=== PATIENT | female | born 1945 | race Two or more races ===

== ENCOUNTER 2025-07-07 09:53 | Inpatient (IN) | payer MEDICARE, SELFPAY ==
--- NOTE | 2025-06-13 09:39 | CM ---
Demographics: confirmed
Living situation: lives independently with
Support Person Post Operatively: and daughter
History of
VN: history of [facility], not currently on service.
SNF: No
Outpatient: [facility] in [place], appointment made 07/10
Has patient purchased required equipment: yes, walker, encouraged hip kit
PCP: Nancy
Pharmacy: [facility]
Post Operative Discharge Plan: Home with family, outpatient PT
[2025-06-17 14:22] LABS: Hematocrit 42.4 % (37.0-47.0); Hemoglobin 13.9 g/dL (12.0-16.0); Mean Corp Hgb Conc. 32.8 g/dL (33.0-37.0); Mean Corpuscular Volume 89.5 fL (81.0-99.0); Platelet Count 231 10^3/uL (130-400); Red Cell Dist. Width 15.9 % (11.5-14.5)
[2025-06-17 15:26] LABS: ALT (SGPT) 19 U/L (0-35); AST (SGOT) 21 U/L (14-36); Albumin 4.3 g/dl (3.5-5.0); Alkaline Phosphatase 94 U/L (38-126); Blood Urea Nitrogen 14 mg/dl (7-17); Calcium 9.2 mg/dl (8.4-10.2); Carbon Dioxide 30 mmol/L (22-30); Chloride 99 mmol/L (98-107); Glucose 82 mg/dl (70-99); Potassium 4.5 mmol/L (3.5-5.1); Sodium 134 mmol/L (135-145); Total Protein 6.9 g/dl (6.3-8.2); eGFR > 60.00
[2025-06-18 08:10] LABS: Glycohemoglobin (HgbA1c) 5.4 % (4.0-5.9)
[2025-06-18 14:42] VITALS: BMI 25.4
[2025-06-18 14:43] VITALS: BMI 25.4
--- NOTE | 2025-07-01 09:26 | CM ---
Patient reached out to orthopedic office to see if she would qualify for acute rehab, plan is to to wait for PT/OT evaluations and then review patient needs at discharge, patient made her outpatient PT appointment at [facility] on
07/10.
Plan Await recommendations after surgery.
[2025-07-07] VITALS (21 sets, daily range): BP systolic 103–149; BP diastolic 48–108; BMI 25.4
[2025-07-07] MEDS: MOBIC 15 MG PO (10:52)
[2025-07-07] MEDS: TYLENOL 650 MG PO ×3 (10:52→20:19)
[2025-07-07] MEDS: NORMOSOL-R/PLASMALYTE-A 1000 IV ×2 (10:52→18:43)
--- NOTE | 2025-07-07 14:09 | W.PN.ORTHO ---
Today's Communication / Plan
-
d/c when stable
Assessment
.
Assessment:
Afib
HFpEF
PFO
-tele
-continue BB, Diltiazem and Propafenone uninterrupted
-resume Eliquis at modified dosing
-resume Jardiance
+ Midodrine w/ parameter to insure heart meds
-advise SCD given PFO
Ambulatory dysfunction.
Hx SDH s/p mechanical fall.
Vertigo.
-fall precautions
Iron deficiency anemia, on oral supplementation.
-Hgb stable pre-op
Plan
.
Surgery / Date: L SANTI Shipley 07/07/25
DVT Prophylaxis: Other (Eliquis 2.5mg bid + SCD)
Activity:
Out of bed.
PT/OT
Discharge Plan: Home w/ Outpatient PT
Vital Signs and Labs
.
Vital Signs and Labs:
Lab Results
06/17/25 12:12
06/17/25 12:12
Temp Pulse Resp BP Pulse Ox
97.6 F 63 16 121/65 97
07/07/25 10:45 07/07/25 10:45 07/07/25 10:45 07/07/25 10:45 07/07/25 10:45
--- NOTE | 2025-07-07 14:30 | W.DS.TRANS ---
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
-
Discharge Instructions:
Sleep Apnea Risk Intermediate
Discharge Diagnosis/Procedures L hip OA s/p L SANTI w/ Dr Shipley 07/07/25
Diet Regular
Additional Diets Adequate hydration, minimize opioids, and wear
TEDS to prevent low blood pressure/dizziness.
Activity As tolerated,With Walker
Driving Restrictions Not until seen by your Dr
Bathing Restrictions OK to Shower
Other Services PT
Wound Care Dressing to be removed 1 week post-surgery.
[place] to be removed at 2 week follow-up with
surgeon's office.
Specialty Instructions Weigh Daily
Instructions:
Stand-Alone Forms: Total Hip/Knee Replacement D/C
Changes to Home Medications: Yes
Discharge Medications:
DC Medications w/original date entered in [employer]
Lactobacillus acidophilus-Bifidobac.animalis 2.5 billion cell capsule (Daily Probiotic) 1 cap PO DAILY 06/13/25
alendronate 70 mg tablet 70 mg PO QWEEK 06/13/25
atorvastatin 40 mg tablet 40 mg PO HS 06/13/25
carvedilol 25 mg tablet 25 mg PO BID 06/13/25
cholecalciferol (vitamin D3) 125 mcg (5,000 unit) tablet (Vitamin D3) 125 mcg PO DAILY 06/13/25
cyanocobalamin (vitamin B-12) 1,000 mcg tablet 1,000 mcg PO DAILY 06/13/25
diltiazem HCl 120 mg capsule,extended release 24 hr 120 mg PO DAILY 06/13/25
duloxetine 60 mg capsule,delayed release 60 mg PO DAILY 06/13/25
empagliflozin 10 mg tablet (Jardiance) 10 mg PO DAILY 06/13/25
ferrous sulfate 324 mg (65 mg iron) tablet,delayed release 324 mg PO DAILY 06/13/25
folic acid 1 mg tablet 1 mg PO DAILY 06/13/25
levothyroxine 88 mcg tablet 88 mcg PO MOTUWEFRSA 06/13/25
magnesium oxide 400 mg PO BID 06/13/25
omeprazole 20 mg tablet,delayed release 20 mg PO DAILY 06/13/25
propafenone 425 mg capsule,extended release 12 hr 425 mg PO Q12H 06/13/25
vibegron 75 mg tablet (Gemtesa) 75 mg PO DAILY 06/13/25
mupirocin 2 % topical ointment 1 applic intranasal BID #1 tube 06/17/25
ondansetron HCl 4 mg tablet 4 mg PO Q6H PRN nausea and vomiting #30 tabs 06/24/25
oxycodone 5 mg tablet 5 - 10 mg (1 - 2 x 5 mg) PO Q6H PRN moderate-severe pain #30 tabs 06/24/25
pregabalin 50 mg capsule (Lyrica) 50 mg PO HS neuropathic pain/sleep #10 caps 06/24/25
apixaban 5 mg tablet (Eliquis) 2.5 mg (1/2 x 5 mg) PO BID Blood clot prevention/tx/afib #0 tabs 07/07/25
docusate sodium 100 mg capsule (Colace) 100 mg PO BID stool softner #1 cap 07/07/25
furosemide 20 mg tablet 20 mg PO SUTUTHSA #0 tabs 07/07/25
magnesium hydroxide 400 mg/5 mL oral suspension (Milk of Magnesia) 30 ml PO HS PRN constipation #1 mL 07/07/25
sennosides 8.6 mg tablet (Senokot) 17.2 mg (2 x 8.6 mg) PO BID laxative #2 tabs 07/07/25
Home Medication Changes
mupirocin 2 % topical ointment 1 applic intranasal BID #1 tube 06/17/25
ondansetron HCl 4 mg tablet 4 mg PO Q6H PRN nausea and vomiting #30 tabs 06/24/25
oxycodone 5 mg tablet 5 - 10 mg (1 - 2 x 5 mg) PO Q6H PRN moderate-severe pain #30 tabs 06/24/25
pregabalin 50 mg capsule (Lyrica) 50 mg PO HS neuropathic pain/sleep #10 caps 06/24/25
apixaban 5 mg tablet (Eliquis) 2.5 mg (1/2 x 5 mg) PO BID Blood clot prevention/tx/afib #0 tabs 07/07/25
docusate sodium 100 mg capsule (Colace) 100 mg PO BID stool softner #1 cap 07/07/25
furosemide 20 mg tablet 20 mg PO SUTUTHSA #0 tabs 07/07/25
magnesium hydroxide 400 mg/5 mL oral suspension (Milk of Magnesia) 30 ml PO HS PRN constipation #1 mL 07/07/25
sennosides 8.6 mg tablet (Senokot) 17.2 mg (2 x 8.6 mg) PO BID laxative #2 tabs 07/07/25
Pending Results: No
[2025-07-07] MEDS: ROXICODONE 5 MG PO ×3 (16:10→21:37)
[2025-07-07] MEDS: CYMBALTA DELAYED RELEASE 60 MG PO (18:43)
[2025-07-07] MEDS: FARXIGA 10 MG PO (18:43)
[2025-07-07] MEDS: VISBIOME 1 CAP PO (18:43)
[2025-07-07] MEDS: FOLVITE PO (18:46)
[2025-07-07] MEDS: FEOSOL PO (18:46)
[2025-07-07] MEDS: BACTROBAN 2% OINTMENT 1 APPLIC NASAL (20:18)
[2025-07-07] MEDS: ANCEF 5 IV (20:18)
[2025-07-07] MEDS: SENOKOT 17.2 MG PO (20:19)
[2025-07-07] MEDS: DECADRON 4 MG IV (20:19)
[2025-07-07] MEDS: ELIQUIS 2.5 MG PO (20:20)
[2025-07-07] MEDS: MAGNESIUM OXIDE 400 MG PO (20:20)
[2025-07-07] MEDS: LYRICA 75 MG PO (20:20)
[2025-07-07] MEDS: COLACE 100 MG PO (20:21)
[2025-07-07] MEDS: COREG 25 MG PO (21:28)
[2025-07-07] MEDS: LIPITOR 40 MG PO (21:28)
[2025-07-07] MEDS: PROTONIX 20 MG PO (21:32)
[2025-07-08] MEDS: TYLENOL PO ×2 (00:19→12:34)
[2025-07-08] MEDS: ANCEF 5 IV (03:15)
[2025-07-08] MEDS: TYLENOL 650 MG PO ×2 (03:16→10:12)
[2025-07-08 03:22] VITALS: BP 117/74
[2025-07-08] MEDS: ROXICODONE 5 MG PO (05:50)
[2025-07-08 06:00] VITALS: BMI 25.1
[2025-07-08] MEDS: SYNTHROID 88 MCG PO (06:27)
[2025-07-08 07:32] VITALS: BP 142/83
--- NOTE | 2025-07-08 08:56 | CM ---
Addendum entered by Tiffanie Sandoval 07/08/25 11:26:
[facility]
[phone]

Original Note:
Chart reviewed and patient was asking about acute rehab, physical therapy are recommending outpatient rehab v's home PT/OT, patient feels that she would prefer home care at this time, per [facility] patient is out of area for their nurses, referral sent
to [facility] visiting nurses, for PT/OT and nursing.
Plan; Await final decision, from PT/OT, patient also reports that she needs to be able to do stairs at discharge.
.
[2025-07-08 10:05] VITALS: BP 118/67; PULSE 88; O2SAT 96
[2025-07-08] MEDS: BACTROBAN 2% OINTMENT 1 APPLIC NASAL (10:07)
[2025-07-08] MEDS: CARDIZEM CD 120 MG PO (10:09)
[2025-07-08] MEDS: COLACE 100 MG PO (10:09)
[2025-07-08] MEDS: DECADRON 4 MG IV (10:10)
[2025-07-08] MEDS: COREG 25 MG PO (10:10)
[2025-07-08] MEDS: CYMBALTA DELAYED RELEASE 60 MG PO (10:10)
[2025-07-08] MEDS: FLUSH (NSS) 2 FLUSH IV (10:11)
[2025-07-08] MEDS: VISBIOME 1 CAP PO (10:12)
[2025-07-08] MEDS: SENOKOT 17.2 MG PO (10:12)
[2025-07-08] MEDS: MAGNESIUM OXIDE 400 MG PO (10:13)
[2025-07-08] MEDS: FEOSOL 325 MG PO (10:13)
[2025-07-08] MEDS: FOLVITE 1 MG PO (10:14)
[2025-07-08] MEDS: LYRICA 75 MG PO (10:14)
[2025-07-08] MEDS: ELIQUIS 2.5 MG PO (10:14)
[2025-07-08] MEDS: FARXIGA 10 MG PO (10:14)
--- NOTE | 2025-07-08 11:05 | W.PN.ORTHO ---
Today's Communication / Plan
-
d/c
Assessment
.
Distal Motor Intact: Yes
Dressing:
Clean, dry and intact.
Assessment:
Afib
HFpEF
PFO
-continue BB, Diltiazem and Propafenone uninterrupted
-resume Eliquis at modified dosing
-resume Jardiance
+Midodrine w/ parameter to insure heart meds
-advise SCD given PFO
-stable on tele
Ambulatory dysfunction.
Hx SDH s/p mechanical fall.
Vertigo.
-fall precautions
Iron deficiency anemia, on oral supplementation.
-Hgb stable pre and post-op
Plan
.
Surgery / Date: L SANTI Dr Shipley 07/07/25
DVT Prophylaxis: Other (Eliquis + SCD(advised))
Activity:
Out of bed.
PT/OT
Discharge Plan: Home w/ VN
Subjective
.
.:
Patient resting comfortably.
Vital Signs and Labs
.
Vital Signs and Labs:
Lab Results
06/17/25 12:12
06/17/25 12:12
Temp Pulse Resp BP Pulse Ox
97.9 F 94 16 142/83 93
07/08/25 07:32 07/08/25 08:00 07/08/25 07:32 07/08/25 08:00 07/08/25 07:32
Non-invasive Hgb result: 13.6
Physical Exam
-
HEENT: No pallor, cyanosis, or jaundice. Throat clear.
NECK: Supple. No JVD.
RESPIRATORY: Lungs clear to auscultation.
CVS: S1, S2 normal. RRR.� No murmur, rub or gallop.
ABDOMEN: Soft, non-tender. No distension. BS+/normal.
EXTREMITIES: strength equal, no calf pain with palpation
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 No focal deficits. hip hop dancer grossly intact
[2025-07-08] MEDS: ROXICODONE 10 MG PO (11:11)
[2025-07-08 11:27] VITALS: BP 113/66
[2025-07-08] MEDS: FLUZONE HIGH-DOSE 2025-26 0.5 ML IM (12:24)
== END 2025-07-08 14:00 | disposition home health service (06) | DRG 470 ==
LOC: 2 SOUTH 09:53
PROVIDERS: ADMITTING PHYSICIAN Specialist; FAMILY PHYSICIAN Internal Medicine; REFERRING PHYSICIAN Internal Medicine Cardiovascular Disease
PROC: 0SRB0JA Replacement of Left Hip Joint with Synthetic Substitute, Uncemented, Open Approach (ICD-10-PCS; 2025-07-07)
PROC: 3E02340 Introduction of Influenza Vaccine into Muscle, Percutaneous Approach (ICD-10-PCS; 2025-07-08)
DX: M16.12 Unilateral primary osteoarthritis, left hip (principal); E87.1 Hypo-osmolality and hyponatremia; Q21.12 Patent foramen ovale; I50.30 Unspecified diastolic (congestive) heart failure; I11.0 Hypertensive heart disease with heart failure; E78.5 Hyperlipidemia, unspecified; I48.91 Unspecified atrial fibrillation; K21.9 Gastro-esophageal reflux disease without esophagitis; K57.30 Diverticulosis of large intestine without perforation or abscess without bleeding; G62.0 Drug-induced polyneuropathy; T45.1X5A Adverse effect of antineoplastic and immunosuppressive drugs, initial encounter; N32.81 Overactive bladder; D50.9 Iron deficiency anemia, unspecified; F32.A Depression, unspecified; H26.9 Unspecified cataract; I34.81 Nonrheumatic mitral (valve) annulus calcification; I27.20 Pulmonary hypertension, unspecified; M85.80 Other specified disorders of bone density and structure, unspecified site; D72.819 Decreased white blood cell count, unspecified; N20.0 Calculus of kidney; E03.9 Hypothyroidism, unspecified; Z96.611 Presence of right artificial shoulder joint; Z85.3 Personal history of malignant neoplasm of breast; Z90.13 Acquired absence of bilateral breasts and nipples; Z79.01 Long term (current) use of anticoagulants; Z79.84 Long term (current) use of oral hypoglycemic drugs; Z79.890 Hormone replacement therapy; Z79.899 Other long term (current) drug therapy; Z87.820 Personal history of traumatic brain injury; Z88.2 Allergy status to sulfonamides; Z23 Encounter for immunization
CPT/HCPCS: 36415; 73502; 80053; 83036; 85027; 87070; 88304; 88311; 88341; 88342; 90662; 97110; 97116; 97162; 97166; 97530; 97535; C1713; C1776; G0008